=== PATIENT | male | born 1995 | race Caucasian/White ===

== ENCOUNTER 2024-10-13 10:55 | Emergency (ER) | payer SELFPAY ==
[~2024-10-13] VITALS: Ht 182.9 cm; Wt 79.4 kg
[2024-10-13] MEDS ORDERED: LIDOCAINE HCL/MPF 1% 30 ML VIAL IJ ONE (11:31)
[2024-10-13 13:53] VITALS: BP 128/70; TEMP 98.5; O2SAT 99
== END 2024-10-13 13:53 | disposition home or self-care (01) ==
LOC: ER 11:07
DX: S61.215A Laceration without foreign body of left ring finger without damage to nail, initial encounter (principal); W25.XXXA Contact with sharp glass, initial encounter; Y93.89 Activity, other specified; Y92.89 Other specified places as the place of occurrence of the external cause; Y99.8 Other external cause status
CPT/HCPCS: 12002; 99282; A6403; J3490